=== PATIENT | male | born 1955 | race Caucasian/White ===

== ENCOUNTER 2024-06-18 10:55 | Emergency (ER) | payer BC, MEDICARE, SELFPAY ==
[2024-06-18 11:10] VITALS: BP 146/99
[2024-06-18 11:59] LABS: % Basophils 0.6 % (0-2); % Eosinophils 1.2 % (0-6); % Immature Granulocytes 0.3 % (0-0.5); % Lymphocytes 25.1 % (20.5-51.1); % Monocytes 8.1 % (1.7-9.3); % Neutrophils 64.7 % (42.2-75.2); Absolute Eosinophils 0.1 10^3/uL (0-0.7); Absolute Lymphocytes 1.7 10^3/uL (1.2-3.4); Absolute Monocytes 0.5 10^3/uL (0.1-0.6); Absolute Neutrophils 4.3 10^3/uL (1.4-6.5); Hematocrit 39.2 % (39.0-52.0); Hemoglobin 14.3 g/dL (13.0-18.0); Mean Corp Hgb Conc. 36.5 g/dL (33.0-37.0); Mean Corpuscular Hgb 30.2 pg (27.0-31.0); Mean Corpuscular Volume 82.9 fL (80.0-94.0); Mean Platelet Volume 10.5 fL (7.4-10.4); Nucleated Red Blood Cells % 0 % (-); Platelet Count 196 10^3/uL (130-400); Red Blood Cell Count 4.73 10^6/uL (4.70-6.10); Red Cell Dist. Width 13.5 % (11.5-14.5); White Blood Cell Count 6.6 10^3/uL (4.8-10.8)
[2024-06-18 12:13] LABS: ALT (SGPT) 18 U/L (0-50); AST (SGOT) 26 U/L (17-59); Albumin 4.3 g/dl (3.5-5.0); Alkaline Phosphatase 50 U/L (38-126); Blood Urea Nitrogen 14 mg/dl (9-20); Calcium 9.5 mg/dl (8.4-10.2); Carbon Dioxide 23 mmol/L (22-30); Chloride 107 mmol/L (98-107); Glucose 119 mg/dl (70-99); Potassium 3.8 mmol/L (3.5-5.1); Sodium 138 mmol/L (135-145); Total Bilirubin 0.6 mg/dl (0.2-1.3); Total Protein 6.3 g/dl (6.3-8.2); eGFR > 60.00
--- NOTE | 2024-06-18 12:19 | ED.GENMED ---
History of Present Illness
General
Chief Complaint: Chest Pain
Source: patient
Time Seen by Provider: 06/18/24 11:56
History of Present Illness
History of Present Illness:
68yoM with a history of tobacco use and chronic back pain on opioids presenting for evaluation of chest pain. Patient reports a constant right-sided chest pain that has been present for the past month. He describes this pain as dull. The pain
radiates to the back. The pain seems to be gradually worsening throughout the month. He started to have central chest discomfort 5 days ago primarily after drinking hot foods or liquids. He took an [id number] antacid thinking he may have
reflux which did not provide any relief. He was seen by his PCP today due to his symptoms. An EKG was performed in the office which was reportedly normal. He was sent to the ED for evaluation. Patient is otherwise asymptomatic and denies any
shortness of breath, diaphoresis, nausea, vomiting, dizziness, syncope. He denies any personal or family history of heart disease. He smokes 1/2 pack/day.
Past History
Past History
ED Past Medical History: None
ED Past Surgical History: Other (Lumbar surgery)
Social History
Tobacco: Smoker
Alcohol: None
Personal:
Living: with family
Employment: Employed
Phy Exam
General Physical Exam
General Presentation: well appearing
General age: appears stated age
General Skin: warm and dry
General Habitus: normal
General Mental: alert
General Hydration: appears well hydrated
Cardiovascular Exam
Cardiovascular Exam: regular rate/rhythm, no edema, no murmur and normal peripheral pulses
Pulmonary Exam
Pulmonary Exam: lungs clear, no respiratory distress, no crackles and no wheezing
Skin Exam
Skin Exam: normal color and warm/dry
Psychiatric Exam
Psychiatric Exam: normal mood/affect
Scores
Heart Score for Chest Pain Patients
STEMI patient?: No
History: Slightly or Non-Suspicious
ECG: Normal
Age: >/= 65 years
Risk Factors: 1 or 2 Risk Factors
Troponin: </= Normal Limit
Heart Score for Chest Pain Patients: 3
Heart Score Risk: 2.5% MACE over next 6 weeks
Course
Orders/Labs/Results
Orders:
Orders
06/18/24 11:16
Electrocardiogram (*1) Urgent
Reason for Study: Chest Pain
06/18/24 11:17
EKG- Treatment ONCE
06/18/24 11:43
CR Chest - 2 Views Urgent
Comment:
Reason For Exam: chest pain
06/18/24 11:51
Complete Blood Count/With Diff Urgent
Comprehensive Metabolic Panel Urgent
Troponin I Urgent
Abnormal Lab Results
06/18/24
11:51
MPV 10.5 H fL
(7.4-10.4)
Glucose 119 H mg/dl
(70-99)
06/18/24 11:51
06/18/24 11:51
Vital Signs
Initial and Last Documented VS:
Initial Vital Signs
Temp Pulse Resp BP Pulse Ox
97.9 F 100 18 146/99 97
06/18/24 11:10 06/18/24 11:10 06/18/24 11:10 06/18/24 11:10 06/18/24 11:10
Last Documented Vital Signs
Temp Pulse Resp BP Pulse Ox
97.9 F 93 18 141/84 99
06/18/24 11:10 06/18/24 13:30 06/18/24 13:30 06/18/24 13:30 06/18/24 13:30
MDM/Problems Addressed
Differential Diagnosis Includes:
68yoM here with R sided chest pain ongoing x 1 month. Now having central chest pain with swallowing hot liquids for a few days. Otherwise asymptomatic. He is mildly hypertensive with otherwise normal vitals. He is well appearing in no distress. Exam
is reassuring. Differential diagnosis includes but is not limited to: esophagitis, GERD, pneumonia, pneumothorax, ACS, less likely PE, nonspecific chest pain
Initial ED plan: Check cardiac labs, EKG, and CXR.
*EKG
Interpreted by ED Provider?: Yes
EKG Intrepretation Date: 06/18/24
Heart Rate: 84
Rate: normal
Rhythm: sinus
Oliver: normal axis
Interval: normal interval
QRS Pattern: normal QRS
Ischemia: no ischemia
*Critical Care Note
Total Time (30-74mins, 75-104mins- exclusive of procedures): Not Applicable
Update Note
Update Note:
Labs overall unremarkable. EKG shows NSR without ischemic changes and troponin is WNL. CXR is clear. HEART score is 3. No indication for admission. Advised f/u with PCP and cardiology. Strict ED return precautions discussed. He was discharged in
stable condition.
ED Attending Note
-
Portions of this chart may have been created with voice recognition software.� Occasional wrong word or��sound alike� substitutions may have occurred due to the inherent limitations of voice recognition software.
Discharge Plan
Departure
Patient Disposition: Home (Routine Discharge)
Date of Disposition: 06/18/24
Time of Disposition: 13:10
Patient with high blood pressure during this ER visit?: Yes
Discharge Problem:
Chest pain
Instructions: Chest Pain CBC Follow Up
Prescriptions:
No Action
omeprazole 20 MG capsule,delayed release(DR/EC)
20 mg PO DAILY PRN (Reason: gerd)
sennosides [senna] 1 TABLET tablet
2 tab PO BID 0RF
docusate sodium 100 MG capsule
100 mg PO BID 0RF
oxycodone-acetaminophen [Percocet] 1 EACH tablet
0.5 - 1 tab PO Q4HPRN PRN (Reason: moderate-severe pain) Qty: 30 0RF
Rx Instructions:
1/2 tab for moderate pain, 1 tab if severe
dx lami
ongoing therapy
lorazepam 1 MG tablet
1 mg PO Q8HPRN PRN (Reason: muscle spasms/anxiety) Qty: 20 0RF
Rx Instructions:
Caution with Percocet - can cause drowsiness.
Take only as needed and as directed.
Referrals:
Evelio Diaz MD [Active] -
Richard Camargo MD [Family Provider] -
Activity Restrictions/Additional Instructions:
Please call today to schedule a follow-up with your family doctor and cardiology. Return to the ER with any new or worsening symptoms.
Interventions
Interventions:
*Risk Screen - Suicide Last Done: 06/18/24 11:29
*General Assessment Last Done: 06/18/24 11:29
*Neglect/Abuse Screening Last Done: 06/18/24 11:29
ED- Fall Risk Assessment Last Done: 06/18/24 11:29
*Nursing Disposition Last Done: 06/18/24 13:43
ED- Cardiac Assessment Last Done: 06/18/24 11:29
Discharge Date and Time
Discharge Date/Time: 06/18/24 14:19
Print Language: BRUNEIAN
[2024-06-18 12:22] LABS: Troponin I < 0.012 ng/ml
[2024-06-18 13:30] VITALS: BP 141/84
== END 2024-06-18 14:19 | disposition home or self-care (01) ==
LOC: EMR 10:55
PROVIDERS: EMERGENCY PHYSICIAN Emergency Medicine; FAMILY PHYSICIAN Family Medicine
DX: R07.89 Other chest pain (principal); R03.0 Elevated blood-pressure reading, without diagnosis of hypertension; G89.29 Other chronic pain; M54.9 Dorsalgia, unspecified; F17.210 Nicotine dependence, cigarettes, uncomplicated; Z88.5 Allergy status to narcotic agent
CPT/HCPCS: 99283; 71046; 80053; 84484; 85025; 93005